=== PATIENT | female | born 1980 | race Caucasian/White ===

== ENCOUNTER 2018-12-19 06:00 | Emergency (ER) | payer OTHER ==
[~2018-12-19] VITALS: Ht 157.5 cm; Wt 113.4 kg
[2018-12-19 06:15] VITALS: BP 149/77
== END 2018-12-19 06:41 | disposition left against medical advice (07) ==
LOC: EDBD 06:00 → ER 06:04
DX: R10.9 Unspecified abdominal pain (principal); Z53.21 Procedure and treatment not carried out due to patient leaving prior to being seen by health care provider